=== PATIENT | male | born 1995 ===

== ENCOUNTER 2018-03-18 16:29 | Inpatient (IN) | payer OTHER ==
[2018-03-18 16:37] VITALS: BMI 31.8
[2018-03-18] MEDS ORDERED: Sodium Chloride 0.9% 1,000 ML IV ONE (17:58)
--- NOTE | 2018-03-18 17:58 | C.PDOC ---
"History Of Present Illness <Maggie Dawn - Last Filed: 03/18/18 18:52> <MikiflorentinorudolphMatthew - Last Filed: 03/20/18 16:09> 22 year old male presents to the ED complaining of localized right lower pain since yesterday. Patient denies any fever, nausea, vomiting, diarrhea, or urinary symptoms. He denies any past surgical history. RLQ PAIN SINCE YEST. LOCALIZED. NO FEVER NVD, UTI SX. PSH NEG EXAM NONTOXIC ABD +RLQ TEND MILD SOFT NO R/G REMAINDER NEG (López,Maggie) History Per: Patient History/Exam Limitations: no limitations Onset/Duration Of Symptoms: Days Current Symptoms Are (Timing): Still Present Location Of Pain/Discomfort: RLQ Associated Symptoms: denies: Fever, Nausea, Vomiting, Diarrhea <Maggie Dawn - Last Filed: 03/18/18 18:52> <MikililliamChataMatthew - Last Filed: 03/20/18 16:09> Time Seen by Provider: 03/18/18 17:55 Chief Complaint (Nursing): Abdominal Pain Past Medical History Reviewed: Historical Data, Nursing Documentation, Vital Signs - Medical History PMH: Asthma Surgical History: No Surg Hx Family History: States: No Known Family Hx - Social History Hx Alcohol Use: Yes Hx Substance Use: No - Immunization History Hx Tetanus Toxoid Vaccination: No Hx Influenza Vaccination: No Hx Pneumococcal Vaccination: No <Maggie Dawn - Last Filed: 03/18/18 18:52> Vital Signs: Last Vital Signs Temp 98 F 03/20/18 07:30 Pulse 64 03/20/18 07:30 Resp 20 03/20/18 07:30 BP 122/78 03/20/18 07:30 Pulse Ox 97 03/20/18 07:30 Review Of Systems Except As Marked, All Systems Reviewed And Found Negative. Constitutional: Negative for: Fever, Chills Gastrointestinal: Positive for: Abdominal Pain (RLQ ). Negative for: Nausea, Vomiting, Diarrhea Genitourinary: Negative for: Dysuria, Frequency, Incontinence, Hematuria <Maggie Dawn - Last Filed: 03/18/18 18:52> Physical Exam - Physical Exam Appears: Non-toxic, No Acute Distress Skin: Normal Color, Warm, Dry Head: Atraumatic, Normacephalic Eye(s): bilateral: Normal Inspection Nose: Normal Oral Mucosa: Moist Neck: Supple Cardiovascular: Rhythm Regular Respiratory: Other (NARD) Gastrointestinal/Abdominal: Soft, Tenderness (+RLQ mild tenderness ), No Guarding, No Rebound <Maggie Dawn - Last Filed: 03/18/18 18:52> ED Course And Treatment O2 Sat by Pulse Oximetry: 97 (RA) Pulse Ox Interpretation: Normal Progress Note: CT Abd/Pel ordered. Labs ordered. Patient given Morphine 2mg IVP , Zofran 4mg IVP and Fluids. Urine collected and sent to the lab for analysis. <Maggie Dawn - Last Filed: 03/18/18 18:52> - Laboratory Results Result Diagrams: 03/20/18 07:00 03/20/18 07:00 - CT Scan/US Ct abd/pelvis Other Rad Studies (CT/US): Read By Radiologist, Radiology Report Reviewed CT/US Interpretation: EXAM: CT Abdomen and Pelvis With Intravenous Contrast. CLINICAL HISTORY: 22 years old, male; Pain; Abdominal pain; Other: Rlq; Additional info: Abd pain rlq RO appy. TECHNIQUE: Axial computed tomography images of the abdomen and pelvis with intravenous contrast. All CT. scans at this facility use at least one of these dose optimization techniques: automated exposure. control; mA and/or kV adjustment per patient size (includes targeted exams where dose is matched to. clinical indication); or iterative reconstruction. CONTRAST: 100 mL of Visipaque 320 administered intravenously. COMPARISON: No relevant prior studies available. FINDINGS: Lung bases: Unremarkable. No mass. No consolidation. ABDOMEN: Liver: Unremarkable. No mass. Gallbladder and bile ducts: Unremarkable. No calcified stones. No ductal dilation. No significant. wall thickening. Pancreas: Unremarkable. No mass. No ductal dilation. Spleen: Unremarkable. No splenomegaly. Adrenals: Unremarkable. No mass. Kidneys and ureters: Unremarkable. No solid mass. No hydronephrosis. Stomach and bowel: Unremarkable. No obstruction. No mucosal thickening. PELVIS: Appendix: The appendix demonstrates mild diffuse distention, consistent with mild or early acute. appendicitis. 10 mm appendix diameter. There is mild periappendiceal inflammatory stranding. ARRON HARMAN | Preliminary Radiology Report. CONFIDENTIALITY STATEMENT. This report is intended only for the use of the referring physician, and only in accordance with law, If you received this in error, call [phone]. Page 2 of 2. Bladder: Unremarkable. No mass. Reproductive: Unremarkable as visualized. ABDOMEN and PELVIS: Intraperitoneal space: Unremarkable. No free air. No significant fluid collection. Bones/joints : No acute fracture. No dislocation. Soft tissues: Unremarkable. Vasculature: Unremarkable. No abdominal aortic aneurysm. Lymph nodes: Unremarkable. No enlarged lymph nodes. IMPRESSION: Acute early appendicitis, without complications. Thank you for allowing us to participate in the care of your patient. Dictated and Authenticated by: Olaf Harvey MD. 03/18/2018 10:31 PM Eastern Time ([place] & [place]) <Matthew Womack - Last Filed: 03/20/18 16:09> Medical Decision Making <Maggie Dawn - Last Filed: 03/18/18 18:52> <Matthew Womack - Last Filed: 03/20/18 16:09> Medical Decision Making: case endorsed pending ct ct shows appendcitis. accepted by ilya. (Matthew Womack) Disposition Counseled Patient/Family Regarding: Diagnosis - Disposition Disposition Time: 19:00 <Maggie Dawn - Last Filed: 03/18/18 18:52> <Matthew Womack - Last Filed: 03/20/18 16:09> - Disposition Disposition: HOSPITALIZED Condition: GOOD - Clinical Impression Clinical Impression: Abdominal pain, Acute appendicitis Physician Patient Turnover Patient Signed Over To: Matthew Womack Handoff Comments: FU LABS, CT, DISPO <Maggie Dawn - Last Filed: 03/18/18 18:52>"
[2018-03-18] MEDS ORDERED: Iodixanol 320 MG/ML 100 ML BOTTLE IV ONE (18:33)
[2018-03-18 18:45] LABS: BASO % 0.3 % (0.0-2.0); EOS # 0.3 K/uL (0.0-0.7); EOS % 2.3 % (0.0-4.0); HEMOGLOBIN 13.2 g/dL (12.0-18.0); LYMPH # 2.2 K/uL (1.0-4.3); LYMPH % 16.1 % (20.0-40.0); MEAN CELL VOLUME 68.9 fL (80.0-94.0); MEAN CORPUSCULAR HGB CONC 31.9 g/dL (33.0-37.0); MEAN PLATELET VOLUME 8.4 fL (7.2-11.7); MONO # 0.9 K/uL (0.0-0.8); MONO % 6.8 % (0.0-10.0); NEUT # 10.3 K/uL (1.8-7.0); NEUT % 74.5 % (50.0-75.0); NRBC % 0.3 % (0.0-2.0); RED CELL DISTRIBUTION WIDTH 15.1 % (11.5-14.5); WHITE BLOOD COUNT 13.8 K/uL (4.8-10.8)
[2018-03-18 18:59] LABS: BLOOD UREA NITROGEN 14 mg/dL (9-20); CALCIUM 9.4 mg/dl (8.6-10.4); GFR AFRICAN-AMERICAN > 60; GFR NON-AFRICAN AMERICAN > 60
[2018-03-18 19:08] LABS: SQUAMOUS EPITHIAL < 1 /hpf (0-5); URINE BILIRUBIN NEGATIVE (NEGATIVE); URINE BLOOD NEGATIVE (NEGATIVE); URINE CLARITY Clear (Clear); URINE COLOR Yellow (YELLOW); URINE GLUCOSE (UA) NORMAL (Normal); URINE LEUKOCYTE ESTERASE NEG Leu/uL (Negative); URINE PROTEIN NEGATIVE (NEGATIVE); URINE UROBILINOGEN NORMAL mg/dL (0.2-1.0)
[2018-03-18] MEDS ORDERED: Sodium Chloride 0.9% 1,000 ML ONE (19:33)
[2018-03-18] MEDS ORDERED: Piperacill/Tazo 3.375gm in Dex 3.375 GM/50 ML BAG IVPB STA (22:36)
[2018-03-18] MEDS ORDERED: Piperacillin/Tazobact 3.375 GM in Sodium Chloride 100 ML IVPB SCH (23:15)
--- NOTE | 2018-03-18 23:34 | CP.PCM.HP ---
History of Present Illness - History of Present Illness History of Present Illness: 22M with PMH of asthma presents to [facility] ED with complaints of abdominal pain. Patient states pain began in the morning after waking up. Patient describes initially abdominal pain was generalized but as time went on the pain began to localize towards RLQ. He states pain is sharp in nature and constant. Patient denies fever/chills, chest pain/SOB, n/v/d, dysuria. PMH: as stated above PSH: none All: NKDA Fam Hx: non-contributory Present on Admission - Present on Admission Any Indicators Present on Admission: No Review of Systems - Review of Systems Review of Systems: 12pt ROS unremarkable except as stated in HPI Past Patient History - Past Social History Smoking Status: Never Smoked - PULMONARY Hx Asthma: Yes - PSYCHIATRIC Hx Substance Use: No Meds Allergies/Adverse Reactions: Allergies Allergy/AdvReac Type Severity Reaction Status Date / Time No Known Allergies Allergy Verified 03/18/18 16:34 Physical Exam - Constitutional Appears: No Acute Distress - Head Exam Head Exam: NORMOCEPHALIC - Eye Exam Eye Exam: EOMI, Normal appearance - ENT Exam ENT Exam: Mucous Membranes Moist - Respiratory Exam Respiratory Exam: NORMAL BREATHING PATTERN - Cardiovascular Exam Cardiovascular Exam: +S1, +S2 - GI/Abdominal Exam GI & Abdominal Exam: Rebound, Soft, Tenderness. absent: Distended, Firm, Guarding, Rigid Additional comments: +McBurney's +RLQ tenderness +rebound tenderness - Neurological Exam Neurological exam: Alert, Oriented x3 - Psychiatric Exam Psychiatric exam: Normal Mood - Skin Skin Exam: Dry, Intact, Warm Results - Vital Signs Recent Vital Signs: Last Vital Signs Temp 99.4 F 03/18/18 16:37 Pulse 64 03/18/18 22:04 Resp 12 03/18/18 22:04 BP 142/76 03/18/18 22:04 Pulse Ox 100 03/18/18 22:04 - Labs Result Diagrams: 03/18/18 18:40 03/18/18 18:40 Labs: Laboratory Results - last 24 hr 03/18/18 03/18/18 03/18/18 18:40 18:40 18:40 WBC 13.8 H RBC 6.00 H Hgb 13.2 Hct 41.3 MCV 68.9 L MCH 22.0 L MCHC 31.9 L RDW 15.1 H Plt Count 190 MPV 8.4 Neut % (Auto) 74.5 Lymph % (Auto) 16.1 L [place] % (Auto) 6.8 Eos % (Auto) 2.3 Baso % (Auto) 0.3 Neut # (Auto) 10.3 H Lymph # (Auto) 2.2 [place] # (Auto) 0.9 H Eos # (Auto) 0.3 Baso # (Auto) 0.0 Sodium 141 Potassium 4.0 Chloride 103 Carbon Dioxide 28 Anion Gap 14 BUN 14 Creatinine 0.8 Est GFR ( Amer) > 60 Est GFR (Non-Af Amer) > 60 Random Glucose 80 Calcium 9.4 Urine Color Yellow Urine Clarity Clear Urine pH 5.0 Ur Specific [place] 1.026 Urine Protein Negative Urine Glucose (UA) Normal Urine Ketones Negative Urine Blood Negative Urine Nitrate Negative Urine Bilirubin Negative Urine Urobilinogen Normal Ur Leukocyte Esterase Neg Urine WBC (Auto) 1 Urine RBC (Auto) 1 Ur Squamous Epith Cells < 1 Assessment & Plan - Assessment and Plan (Free Text) Assessment: 22M with acute appendicitis Plan: -NPO -IVF -ABx -Anti-emetics/Analgesics -SCDs -For OR tomorrow for laparoscopic appendectomy -Consent in chart -F/u AM labs -D/w Dr. Yoanna Lanza PGY3
[2018-03-19 01:08] LABS: INR 1.1; PROTHROMBIN TIME 11.8 SECONDS (9.7-12.2)
[2018-03-19] MEDS: Lactated Ringer's 1,000 ML IV SCH ×4 (01:30→21:37)
[2018-03-19] MEDS: Piperacill/Tazo 3.375gm in Dex 3.375 GM/50 ML BAG IVPB SCH ×4 (03:38→21:37)
[2018-03-19 06:57] LABS: BASO % 0.2 % (0.0-2.0); EOS # 0.4 K/uL (0.0-0.7); HEMOGLOBIN 13.1 g/dL (12.0-18.0); LYMPH # 2.4 K/uL (1.0-4.3); LYMPH % 26.8 % (20.0-40.0); MEAN CORPUSCULAR HEMOGLOBIN 22.3 pg (27.0-31.0); MEAN CORPUSCULAR HGB CONC 32.3 g/dL (33.0-37.0); MEAN PLATELET VOLUME 8.3 fL (7.2-11.7); MONO # 0.7 K/uL (0.0-0.8); MONO % 7.6 % (0.0-10.0); NEUT # 5.6 K/uL (1.8-7.0); NEUT % 61.4 % (50.0-75.0); NRBC % 0.1 % (0.0-2.0); RBC 5.89 Mil/uL (4.40-5.90); RED CELL DISTRIBUTION WIDTH 15.1 % (11.5-14.5); WHITE BLOOD COUNT 9.1 K/uL (4.8-10.8)
[2018-03-19 07:17] LABS: BLOOD UREA NITROGEN 12 mg/dL (9-20); GFR AFRICAN-AMERICAN > 60; GFR NON-AFRICAN AMERICAN > 60
--- NOTE | 2018-03-19 09:06 | CT ---
Date of service: 03/18/2018 PROCEDURE: CT Abdomen and Pelvis without intravenous contrast HISTORY: Abdominal pain. COMPARISON: None. TECHNIQUE: Multiple contiguous axial images were performed through the abdomen and pelvis without the use of intravenous contrast. Subsequently, sagittal and coronal reformatted images were. Radiation dose: Total exam DLP = 815 mGy-cm. This CT exam was performed using one or more of the following dose reduction techniques: Automated exposure control, adjustment of the mA and/or kV according to patient size, and/or use of iterative reconstruction technique. FINDINGS: LOWER THORAX: Unremarkable. LIVER: Unremarkable. No gross lesion or ductal dilatation. GALLBLADDER AND BILE DUCTS: Unremarkable. PANCREAS: Unremarkable. No gross lesion or ductal dilatation. SPLEEN: Unremarkable. ADRENALS: Unremarkable. No mass. KIDNEYS AND URETERS: Unremarkable. No hydronephrosis. No solid mass. VASCULATURE: Unremarkable. No aortic aneurysm. BOWEL: Unremarkable. No obstruction. No gross mural thickening. APPENDIX: Appendix demonstrates mild diffuse distention concerning for mild early acute appendicitis measuring up to 10 millimeters diameter. Mild periappendiceal fat stranding. PERITONEUM: Unremarkable. No free fluid. No free air. LYMPH NODES: Unremarkable. No enlarged lymph nodes. BLADDER: Unremarkable. REPRODUCTIVE: Unremarkable. BONES: Sclerosis of the bilateral SI joints. Punctate sclerotic foci within the right iliac bone. Multilevel endplate sclerosis within the lumbar spine. Small sclerotic foci in the proximal right femur. Clinical correlation. OTHER FINDINGS: None. IMPRESSION: Findings concerning for acute early appendicitis. Clinical correlation. Sclerosis of the bilateral SI joints. Punctate sclerotic foci within the right iliac bone. Multilevel endplate sclerosis within the lumbar spine. Small sclerotic foci in the proximal right femur. Clinical correlation. These findings were preliminarily reported at 10:31 p.m. 03/18/[address] Olaf Harvey from [facility].
[2018-03-19] MEDS ORDERED: Midazolam 2 MG/2 ML VIAL ONE (09:27)
[2018-03-19] MEDS ORDERED: Propofol 10 mg/ml Inj (20 ML) ONE (09:27)
[2018-03-19] MEDS ORDERED: Rocuronium 10 mg/ml (5 ml) ONE (09:41)
[2018-03-19] MEDS: Bupivacaine 0.25% 20 ML INJ IJ ONE ×2 (09:58→10:01)
[2018-03-19] MEDS: Lidocaine/Epinephrine 1% 1:100000 10 ML IJ ONE ×2 (09:58→10:01)
[2018-03-19] MEDS ORDERED: Neostigmine Methylsulfate 3mg/3ml Syringe IV ONE (10:53)
--- NOTE | 2018-03-19 11:27 | PCM.SURG1 ---
Surgeon's Initial Post Op Note - Surgeon's Notes Surgeon: Dr. Lenz Lap Cutter: Semaj PGY2 Type of Anesthesia: General Endo Anesthesia Administered By: Dr. Brennan Pre-Operative Diagnosis: Acute appendicitis Operative Findings: Acute appendicitis Post-Operative Diagnosis: Acute appendicitis Operation Performed: Laparoscopic Appendectomy Specimen/Specimens Removed: Appendix Estimated Blood Loss: EBL {In ML}: 10 Blood Products Given: N/A Drains Used: No Drains Post-Op Condition: Good Date of Surgery/Procedure: 03/19/18 Time of Surgery/Procedure: 11:27
[2018-03-19] MEDS ORDERED: HYDROmorphone 0.5 mg/0.5 ml ISec IVP PRN (11:42)
--- NOTE | 2018-03-19 12:45 | RAD ---
Date of service: 03/18/2018 HISTORY: preop COMPARISON: No prior. TECHNIQUE: Chest PA and lateral FINDINGS: LUNGS: No active pulmonary disease. PLEURA: No significant pleural effusion identified. No pneumothorax apparent. CARDIOVASCULAR: Normal. OSSEOUS STRUCTURES: No significant abnormalities. VISUALIZED UPPER ABDOMEN: Normal. OTHER FINDINGS: None. IMPRESSION: No active disease.
--- NOTE | 2018-03-19 22:15 | OP ---
PROCEDURE DATE: 03/19/2018 PREOPERATIVE DIAGNOSIS: Acute appendicitis. POSTOPERATIVE DIAGNOSIS: Acute appendicitis. PROCEDURE DONE: Laparoscopic appendectomy. SURGEON: Jackson Lenz MD PHYSICIAN SCRIBE: Segun Cha DO, PGY-2 resident. ANESTHESIA: General endotracheal tube anesthesia. ESTIMATED BLOOD LOSS: Around 10 mL. DRAINS: None. PATHOLOGY: The appendix was sent to the pathology. COMPLICATIONS: None. INTRAOPERATIVE FINDINGS: The patient had changes of acute appendicitis. There was no pelvic abscess. DESCRIPTION OF PROCEDURE: On intraoperative steps, this 22-year-old male was diagnosed with acute appendicitis. The patient presented for laparoscopic appendectomy, possible open. Brought to the OR, placed supine on operating table. After induction of the anesthesia, the abdomen was prepped and draped in the usual sterile fashion. A supraumbilical transverse incision was made after incising the skin, subcutaneous tissue, and the fascia. The Adele port was placed and pneumo was created. A 5-mm port was placed in the suprapubic region. A 12-mm port was placed in the left lower quadrant. Grasper and dissector were introduced. The appendix appeared to be in the paracecal position. The mesoappendix was detected. The base of appendix was resected with MYRON, and this was taken in an Endo Cath bag, taken out through the umbilical port site and was sent off the table for pathology. There was a proper hemostasis in each and every part of the procedure. After proper suction and irrigation of the pelvis, periappendicular area and perihepatic area, all the ports were taken out under vision and pneumo was deflated. The umbilical port site was closed in two layers; the fascia with 0 Vicryl interrupted suture and skin with 4-0 Monocryl. Dry sterile dressing was applied. The patient tolerated the procedure well. Count of the instrument and gauze was correct. There was no apparent complication. The patient was extubated in the OR and sent to the postanesthesia care unit in stable condition. Jackson Lenz MD
[2018-03-20 00:59] VITALS: RESP 20
[2018-03-20] MEDS: Lactated Ringer's 1,000 ML IV SCH (02:28)
[2018-03-20] MEDS: Piperacill/Tazo 3.375gm in Dex 3.375 GM/50 ML BAG IVPB SCH ×2 (03:33→09:20)
--- NOTE | 2018-03-20 06:44 | CP.PCM.DIS ---
Provider - Provider Date of Admission: 03/18/18 22:43 Attending physician: Jackson Lenz MD Time Spent in preparation of Discharge (in minutes): 40 Diagnosis - Discharge Diagnosis (1) Acute appendicitis Status: Acute Hospital Course - Lab Results Lab Results: Most Recent Lab Values WBC 9.1 K/uL (4.8-10.8) 03/19/18 06:43 RBC 5.89 Mil/uL (4.40-5.90) 03/19/18 06:43 Hgb 13.1 g/dL (12.0-18.0) 03/19/18 06:43 Hct 40.6 % (35.0-51.0) 03/19/18 06:43 MCV 69.0 fL (80.0-94.0) L 03/19/18 06:43 MCH 22.3 pg (27.0-31.0) L 03/19/18 06:43 MCHC 32.3 g/dL (33.0-37.0) L 03/19/18 06:43 RDW 15.1 % (11.5-14.5) H 03/19/18 06:43 Plt Count 190 K/uL (130-400) 03/19/18 06:43 MPV 8.3 fL (7.2-11.7) 03/19/18 06:43 Neut % (Auto) 61.4 % (50.0-75.0) 03/19/18 06:43 Lymph % (Auto) 26.8 % (20.0-40.0) 03/19/18 06:43 [place] % (Auto) 7.6 % (0.0-10.0) 03/19/18 06:43 Eos % (Auto) 4.0 % (0.0-4.0) 03/19/18 06:43 Baso % (Auto) 0.2 % (0.0-2.0) 03/19/18 06:43 Neut # (Auto) 5.6 K/uL (1.8-7.0) 03/19/18 06:43 Lymph # (Auto) 2.4 K/uL (1.0-4.3) 03/19/18 06:43 [place] # (Auto) 0.7 K/uL (0.0-0.8) 03/19/18 06:43 Eos # (Auto) 0.4 K/uL (0.0-0.7) 03/19/18 06:43 Baso # (Auto) 0.0 K/uL (0.0-0.2) 03/19/18 06:43 PT 11.8 SECONDS (9.7-12.2) 03/19/18 00:54 INR 1.1 03/19/18 00:54 APTT 33 SECONDS (21-34) 03/19/18 00:54 Sodium 141 mmol/L (132-148) 03/19/18 06:43 Potassium 3.9 mmol/L (3.6-5.2) 03/19/18 06:43 Chloride 106 mmol/L (98-107) 03/19/18 06:43 Carbon Dioxide 25 mmol/L (22-30) 03/19/18 06:43 Anion Gap 14 (10-20) 03/19/18 06:43 BUN 12 mg/dL (9-20) 03/19/18 06:43 Creatinine 0.8 mg/dL (0.8-1.5) 03/19/18 06:43 Est GFR ( Amer) > 60 07 06:43 Est GFR (Non-Af Amer) > 60 03/19/18 06:43 POC Glucose (mg/dL) 119 mg/dL (65-110) H 03/19/18 20:55 Random Glucose 80 mg/dL (75-110) 03/19/18 06:43 Calcium 9.0 mg/dl (8.6-10.4) 03/19/18 06:43 Urine Color Yellow (YELLOW) 03/18/18 18:40 Urine Clarity Clear (Clear) 03/18/18 18:40 Urine pH 5.0 (5.0-8.0) 03/18/18 18:40 Ur Specific [place] 1.026 (1.003-1.030) 03/18/18 18:40 Urine Protein Negative mg/dL (NEGATIVE) 03/18/18 18:40 Urine Glucose (UA) Normal mg/dL (Normal) 03/18/18 18:40 Urine Ketones Negative mg/dL (NEGATIVE) 03/18/18 18:40 Urine Blood Negative (NEGATIVE) 03/18/18 18:40 Urine Nitrate Negative (NEGATIVE) 03/18/18 18:40 Urine Bilirubin Negative (NEGATIVE) 03/18/18 18:40 Urine Urobilinogen Normal mg/dL (0.2-1.0) 03/18/18 18:40 Ur Leukocyte Esterase Neg [place]/uL (Negative) 03/18/18 18:40 Urine WBC (Auto) 1 /hpf (0-5) 03/18/18 18:40 Urine RBC (Auto) 1 /hpf (0-3) 03/18/18 18:40 Ur Squamous Epith Cells < 1 /hpf (0-5) 03/18/18 18:40 Blood Type O POSITIVE 03/19/18 01:04 Antibody Screen Negative 03/19/18 01:04 - Hospital Course Hospital Course: 22M with PMH of asthma presents to [facility] ED with complaints of abdominal pain. Patient stated pain began in the morning after waking up. Patient described abdominal pain was generalized intially but then migrated towards and localized in RLQ. He rated pain as severe. He stated pain is sharp in nature and constant. Patient denied fever/chills, chest pain/SOB, n/v/d, dysuria. Patient was admitted to surgery for acute appendicitis. He was made NPO and placed on IV fluids. IV antibiotics were started. Analgesics and Anti-emetics were also provided as needed. The following day, patient went to the OR for laparoscopic appendectomy. Patient tolerated procedure well without complications. Patient was started on regular diet afterwards. Patient remained in hospital overnight due to pain control and continued antibiotics. On 03/20, patient was deemed stable for discharge by Dr. Lenz. Patient is to follow up as outpatient with Dr. Lenz within 1-2 weeks. (This is a summary of the hospital course. Please refer to EMR for more details. ) - Date & Time of H&P Date of H&P: 03/18/18 Time of H&P: 23:31 Discharge Exam - Head Exam Head Exam: ATRAUMATIC, NORMOCEPHALIC - Eye Exam Eye Exam: EOMI, Normal appearance Pupil Exam: PERRL - ENT Exam ENT Exam: Mucous Membranes Moist - Respiratory Exam Respiratory Exam: NORMAL BREATHING PATTERN - Cardiovascular Exam Cardiovascular Exam: REGULAR RHYTHM - GI/Abdominal Exam GI & Abdominal Exam: Normal Bowel Sounds, Soft, Tenderness (minmal at surgical sites). absent: Distended, Firm, Guarding, Rebound, Rigid Additional comments: dressings clean dry and intact - Extremities Exam Extremities exam: normal capillary refill, pedal pulses present - Back Exam Back exam: absent: CVA tenderness (L), CVA tenderness (R) - Neurological Exam Neurological exam: Alert, CN II-XII Intact, Oriented x3 - Psychiatric Exam Psychiatric exam: Normal Affect, Normal Mood - Skin Skin Exam: Dry, Intact, Normal Color, Warm Discharge Plan - Follow Up Plan Condition: GOOD Disposition: HOME/ ROUTINE Additional Instructions: Take perocet and colace as prescribed Keep bandage on for 5 days No heavy lifting for 4 weeks Patient to sponge until follow up with Dr. Lenz Keep surgical areas clean and dry Follow up with Dr. Lenz within 1-2 weeks Referrals: Jackson Lenz MD [Staff Provider] -
[2018-03-20 07:34] LABS: BASO % 0.2 % (0.0-2.0); EOS # 0.3 K/uL (0.0-0.7); LYMPH # 2.1 K/uL (1.0-4.3); LYMPH % 24.2 % (20.0-40.0); MEAN CELL VOLUME 69.5 fL (80.0-94.0); MEAN CORPUSCULAR HEMOGLOBIN 22.6 pg (27.0-31.0); MEAN CORPUSCULAR HGB CONC 32.6 g/dL (33.0-37.0); MEAN PLATELET VOLUME 8.4 fL (7.2-11.7); MONO # 0.6 K/uL (0.0-0.8); MONO % 6.8 % (0.0-10.0); NEUT # 5.8 K/uL (1.8-7.0); NEUT % 65.8 % (50.0-75.0); RBC 5.75 Mil/uL (4.40-5.90); RED CELL DISTRIBUTION WIDTH 15.2 % (11.5-14.5); WHITE BLOOD COUNT 8.8 K/uL (4.8-10.8)
[2018-03-20 09:04] VITALS: BP 122/78; PULSE 64; TEMP 98; O2SAT 97
[2018-03-20 09:05] LABS: BLOOD UREA NITROGEN 9 mg/dL (9-20); CALCIUM 8.9 mg/dl (8.6-10.4); GFR AFRICAN-AMERICAN > 60; GFR NON-AFRICAN AMERICAN > 60
== END 2018-03-20 12:27 | disposition home or self-care (01) | DRG 883 ==
LOC: C.ER 16:29 → C.9E 22:43 → C.6T 23:18
PROVIDERS: ADMIT Surgery Surgical Critical Care; ATTEND Surgery Surgical Critical Care
PROC: 0DTJ4ZZ Resection of Appendix, Percutaneous Endoscopic Approach (ICD-10-PCS; principal; 2018-03-19 17:45)
DX: K35.80 Unspecified acute appendicitis (principal); J45.909 Unspecified asthma, uncomplicated